=== PATIENT | female | born 1990 | race Caucasian/White ===

== ENCOUNTER 2016-11-15 08:42 | Emergency (ER) | payer MEDICAID, OTHER ==
[2016-11-15 08:53] VITALS: BP 140/83
[2016-11-15] MEDS ORDERED: Ketorolac 60 MG/2 ML SDV IM ONE (09:14)
[2016-11-15] MEDS ORDERED: Acetaminophen/oxyCODONE 325-5 MG Tab PO ONE (09:15)
[2016-11-15] MEDS ORDERED: cefTRIAXone 1 GM, Lidocaine 1% 2.1 ML IM ONE ×2 (09:15)
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
== END 2016-11-15 09:33 | disposition home or self-care (01) ==
LOC: JP.ED 08:42
DX: K04.7 Periapical abscess without sinus (principal); J45.909 Unspecified asthma, uncomplicated; F41.0 Panic disorder [episodic paroxysmal anxiety]; F17.210 Nicotine dependence, cigarettes, uncomplicated; Z98.890 Other specified postprocedural states; Z79.899 Other long term (current) drug therapy; Z88.5 Allergy status to narcotic agent
CPT/HCPCS: 96372; 99283; A9270; J0696; J1885

== ENCOUNTER 2016-12-19 20:08 | Emergency (ER) | payer MEDICAID ==
[2016-12-19 21:01] VITALS: BP 122/76
[2016-12-19] MEDS ORDERED: LORazepam 1 MG Tab PO ONE (21:39)
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
== END 2016-12-19 22:23 | disposition home or self-care (01) ==
LOC: JP.ED 20:08
DX: F41.9 Anxiety disorder, unspecified (principal); J45.909 Unspecified asthma, uncomplicated; F17.210 Nicotine dependence, cigarettes, uncomplicated; Z88.5 Allergy status to narcotic agent; Z79.899 Other long term (current) drug therapy
CPT/HCPCS: 99283; A9270

== ENCOUNTER 2017-01-03 20:25 | Emergency (ER) | payer MEDICAID ==
[2017-01-03 20:51] VITALS: BP 103/75
[2017-01-03] MEDS ORDERED: Doxycycline 100 MG Cap PO ONE (21:15)
[2017-01-03] MEDS ORDERED: Acetaminophen 325 MG Tab PO ONE (21:15)
[2017-01-03] MEDS ORDERED: Ibuprofen 600 MG Tab PO ONE (21:15)
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
== END 2017-01-03 22:07 | disposition home or self-care (01) ==
LOC: JP.ED 20:25
DX: L03.811 Cellulitis of head [any part, except face] (principal); J45.909 Unspecified asthma, uncomplicated; G43.909 Migraine, unspecified, not intractable, without status migrainosus; F17.210 Nicotine dependence, cigarettes, uncomplicated; Z88.5 Allergy status to narcotic agent
CPT/HCPCS: 80053; 85025; 86618; 86666; 86753; 99284; A9270; 36415

== ENCOUNTER 2018-12-10 12:57 | Emergency (ER) | payer MEDICAID ==
[2018-12-10 13:14] VITALS: BP 149/95; PULSE 104
[2018-12-10] MEDS ORDERED: Bupivacaine 0.5% 10 ML SDV INJECT ONE (13:34)
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
== END 2018-12-10 14:01 | disposition home or self-care (01) ==
LOC: JP.ED 12:57
DX: H60.02 Abscess of left external ear (principal); J45.909 Unspecified asthma, uncomplicated; Z88.5 Allergy status to narcotic agent; Z79.899 Other long term (current) drug therapy; Z87.891 Personal history of nicotine dependence
CPT/HCPCS: 69000; 99282; J3490; 10060

== ENCOUNTER 2019-06-27 05:41 | Inpatient (IN) | payer MEDICAID ==
[2019-06-27] MEDS ORDERED: Lactated Ringers 1,000 ML IV SCH (06:00)
[2019-06-27] MEDS ORDERED: cefOXitin 1 GM Vial ONE (06:43)
[2019-06-27] MEDS ORDERED: Oxytocin 10 Units/1 ML SDV ONE ×2 (06:43→07:09)
[2019-06-27] MEDS ORDERED: ePHEDrine 50 MG/ML SDV ONE (07:31)
[2019-06-27] MEDS ORDERED: Phenylephrine 1% 10 MG/ML SDV ONE (07:36)
[2019-06-27] MEDS ORDERED: cefOXitin 2 GM Vial ONE (07:43)
[2019-06-27] MEDS ORDERED: Lactated Ringers 1,000 ML ONE (07:44)
[2019-06-27] MEDS ORDERED: fentaNYL 100 MCG/2 ML SDV ONE (08:39)
[2019-06-27] MEDS ORDERED: fentaNYL/Normal Saline 600 MCG/30 ML PCA Vial IV PRN (09:19)
[2019-06-27] MEDS ORDERED: Naloxone 0.4 MG/ML SDV IV PRN (09:19)
[2019-06-27] MEDS ORDERED: fentaNYL 100 MCG/2 ML SDV IVPUSH ONE (09:25)
[2019-06-27] MEDS ORDERED: Ondansetron 4 MG/2 ML SDV IVPUSH PRN (09:34)
[2019-06-27] MEDS ORDERED: Albuterol 0.083% 2.5 MG/3 ML Neb Soln INH PRN (09:42)
[2019-06-27] MEDS: hydrOXYzine HCL 100 MG/2 ML SDV IM PRN (09:49)
[2019-06-27] MEDS ORDERED: fentaNYL 100 MCG/2 ML SDV IV PRN ×2 (10:02→18:00)
[2019-06-27] MEDS: Acetaminophen 325 MG Tab PO SCH ×3 (12:08→21:41)
[2019-06-27] MEDS: Dextrose 5%-Lactated Ringers 1,000 ML IV SCH ×2 (12:11→17:19)
[2019-06-27] MEDS ORDERED: SYMBICORT 160/4.5 INHALER (PTOM) INH PRN (13:24)
[2019-06-27] MEDS: Ibuprofen 600 MG Tab PO SCH ×2 (14:07→17:15)
[2019-06-27] MEDS: cefOXitin 2 GM in Sodium Chloride 0.9% 50 ML IV SCH ×2 (14:54→20:06)
[2019-06-27] MEDS ORDERED: Dextrose 5%-Lactated Ringers 1,000 ML IV SCH (18:00)
[2019-06-28] MEDS: Ibuprofen 600 MG Tab PO SCH ×4 (00:21→18:18)
[2019-06-28] MEDS: cefOXitin 2 GM in Sodium Chloride 0.9% 50 ML IV SCH ×4 (02:09→19:42)
[2019-06-28] MEDS: Acetaminophen 325 MG Tab PO SCH ×4 (04:16→21:40)
[2019-06-28] MEDS: hydrOXYzine HCL 100 MG/2 ML SDV IM PRN (04:17)
[2019-06-28] MEDS ORDERED: Lanolin 100% Cream 40 GM Tube TOP PRN (05:45)
[2019-06-28] MEDS ORDERED: Non-Formulary Medication 1 Each (Budesonide/Formoterol [Symbicort 160-4.5 Mcg] 2 PUFF) IH PRN (07:25)
[2019-06-28] MEDS: Pantoprazole 40 MG Tab.CR PO SCH (07:59)
[2019-06-28] MEDS: HYDROmorphone 2 MG Tab PO PRN ×3 (07:59→19:48)
--- NOTE | 2019-06-28 08:45 | PN ---
DATE OF SERVICE: 06/28/2019 SUBJECTIVE: Mary is postop day #1 following a repeat . She states her pain is controlled. Vital signs have been stable. Oral intake 1920, urine output 2275 via Escobar catheter. Her Escobar catheter was removed early this a.m., and she has not voided yet. REVIEW OF SYSTEMS: Remainder of review of systems negative for any pertinent positives and negatives. OBJECTIVE: GENERAL: Mary Mckeon is a pleasant 28-year-old female. VITAL SIGNS: TPR is 98, 93, 18, blood pressure 100/55. HEENT: Negative. NECK: Supple. HEART: Regular rate and rhythm. LUNGS: Clear. ABDOMEN: Dressings dry and intact. Abdominal binder is on. EXTREMITIES: Revealed trace peripheral edema. ASSESSMENT: 1. Repeat section. 2. Bilateral tubal ligation. 3. Repair of incarcerated incisional hernia for history of previous C-sections, multiparity, and incarcerated incisional hernia. 4. Date of surgery: 06/27/2019. Surgeon: Chuy Dodge MD. PLAN: 1. Saline lock IV. 2. May shower. 3. Dulcolax tablets 10 mg p.o. b.i.d. 4. Colace 100 mg p.o. b.i.d. 5. Dilaudid 2 to 4 mg every 4 hours p.r.n. pain. 6. We will evaluate p.r.n. or in a.m. Va Epps PA-C /[id number]
[2019-06-28] MEDS ORDERED: [UNRECOGNIZED DRUG - OTHER] PO SCH (09:00)
[2019-06-28] MEDS ORDERED: PRENATAL PO SCH (09:00)
[2019-06-28] MEDS ORDERED: Non-Formulary Medication 1 Each (Omeprazole Magnesium [Prilosec Otc] 20 MG) PO SCH (09:00)
[2019-06-28] MEDS ORDERED: FOLIC PO SCH (09:00)
[2019-06-28] MEDS ORDERED: IRON FUM PO SCH (09:00)
[2019-06-28] MEDS ORDERED: DHA PO SCH (09:00)
[2019-06-28] MEDS: Bisacodyl 5 MG Tab PO SCH ×3 (10:08→21:41)
[2019-06-28] MEDS: Docusate Sodium 100 MG Cap PO SCH ×3 (10:08→21:41)
[2019-06-28] MEDS: Prenatal Multivitamin with Calcium/Folic Acid/Iron Tab PO SCH (10:09)
[2019-06-29] MEDS: Ibuprofen 600 MG Tab PO SCH ×2 (01:14→06:20)
[2019-06-29] MEDS: cefOXitin 2 GM in Sodium Chloride 0.9% 50 ML IV SCH (01:15)
[2019-06-29] MEDS: Acetaminophen 325 MG Tab PO SCH ×2 (04:51→10:47)
[2019-06-29 07:47] VITALS: BP 100/62; PULSE 94
[2019-06-29] MEDS: Pantoprazole 40 MG Tab.CR PO SCH (07:48)
[2019-06-29] MEDS ORDERED: Ibuprofen 200 MG Tab, 24 Tab Bulk Bottle PO PRN (08:00)
[2019-06-29] MEDS ORDERED: Acetaminophen 325 MG Tab, 50 Tab Bulk Bottle PO PRN (08:00)
--- NOTE | 2019-06-29 09:02 | OR ---
DATE OF PROCEDURE: 06/27/2019 SURGEON: Chuy Dodge MD PREOPERATIVE DIAGNOSES: 1. Term with history of previous section. 2. Multiparity with indications for tubal ligation. POSTOPERATIVE DIAGNOSES: 1. Term with history of previous section. 2. Multiparity with indications for tubal ligation. 3. Incarcerated incisional hernia. OPERATIVE PROCEDURES: 1. Repeat section (20456). 2. Bilateral tubal ligation (65712). 3. Repair of incarcerated incisional hernia (26217). ANESTHESIA: Spinal. JUNIOR ACCOUNT EXECUTIVE: Naomi Marcelino CNM INDICATION FOR PROCEDURE: This is a 28-year-old female presenting for a scheduled repeat section. She also meets criteria for a tubal sterilization, which was approved by the ethics committee. Potential risks of the procedure including bleeding, infection, injury to mother or baby, possibility of the tubal ligation failing, and the fact that a tubal reversal is often not successful, were all gone over with the patient, and she wishes to proceed. DETAILS OF PROCEDURE: The patient was taken to the operating room and placed in a supine position with a roll underneath the right hip after spinal anesthetic had been induced. A Escobar catheter was inserted, and the abdomen was prepped and draped. Previous transverse Pfannenstiel incision was then reused, carried down through the skin and subcutaneous tissue, and through the anterior rectus sheath. Subrectus sheath flaps were then raised superiorly and inferiorly. The patient was noted to have an incarcerated hernia coming up through the leaves of the rectus muscle. This contained some incarcerated omentum within it. This was dissected free and reduced. At that point, the rectus muscles were in the midline. The peritoneal reflection of bladder on the uterus was then divided and reflected downward. A transverse uterine incision was made, and a viable female was delivered through a vertex presentation. Cord was clamped and cut, and routine care was given off the field. The patient was given IV and intrauterine oxytocin and IV cefoxitin. Good uterine contraction was noted. The placenta was delivered without difficulty. The uterus was then closed with 2 layers of 2-0 Vicryl stitch, which was also used to repair the peritoneal reflection of the bladder onto the uterus. At this point, bilateral tubal ligation was accomplished. Roughly 1 cm section of the proximal uterine tube was excised and the remaining ends cauterized and then suture-ligated with 3-0 Prolene stitch. At this point, no further problems were noted. The pericardial cavity was replaced. The uterus was placed back into the peritoneal cavity. The midline musculature was then approximated with #2 Vicryl stitch, this included repair of the area of herniation. The muscle somewhat to the left of that was also split, and this was likewise repaired. Over this then, the rectus sheath was closed with a #2 Vicryl stitch, subcutaneous tissue with 3-0 Vicryl stitch, and the skin with 4-0 Vicryl subcuticular stitch. Dressing was applied. The patient was taken to the recovery room in satisfactory condition. There were no evident complications. Chuy Dodge MD /[id number]
[2019-06-29] MEDS: Docusate Sodium 100 MG Cap PO SCH (10:46)
[2019-06-29] MEDS: Bisacodyl 5 MG Tab PO SCH (10:47)
[2019-06-29] MEDS: Prenatal Multivitamin with Calcium/Folic Acid/Iron Tab PO SCH (10:47)
--- NOTE | 2019-06-29 11:05 | DISCH ---
ADMISSION DIAGNOSES: 1. Term , multiparity, with prior . 2. Desire for permanent sterilization. DISCHARGE DIAGNOSES: 1. Repeat . 2. Bilateral tubal ligation. 3. Repair of incarcerated incisional hernia. POSTOPERATIVE DIAGNOSES: 1. History of previous , multiparity. 2. Incarcerated incisional hernia. Date of surgery: 06/27/2019. Surgeon: Chuy Dodge MD. HISTORY: Mary Mckeon is a 28-year-old female who presented to the hospital for a repeat C- section. After preoperative evaluation and discussion of possible risks and possible complications, she wished to proceed with surgical procedure. HOSPITAL COURSE: Mary had her section on 06/27/2019. She had no complications. Delivery of a viable female. On postoperative day #1, her IV was saline locked. She was able to take a shower. Started on bowel stimulation and oral pain medication. On postoperative day #2, she was ready to be discharged to home. Vital signs were stable. Activity was good. Pain was controlled. Oral intake was adequate. PHYSICAL EXAMINATION: GENERAL: Mary Mckeon is a pleasant 28-year-old female. VITAL SIGNS: Height is 5 feet 1 inch, weight is 204 pounds. TPR 97, 94, 18, blood pressure 100/62. HEENT: Negative. NECK: Supple. HEART: Regular rate and rhythm. LUNGS: Clear. ABDOMEN: Abdominal binder is on. incision looks good. Healing well. No rash. EXTREMITIES: Without peripheral edema. DISPOSITION: Discharged to home. CONDITION: Stable and improving. FOLLOWUP: Appointment with Va Epps PA-C at [facility] on 07/06/2019 at 9 a.m. Follow up with Naomi Marcelino CNP, appointment will be made. HOME MEDICATIONS: 1. Dilaudid 2 mg every 6 hours #28 p.r.n. pain. 2. Tylenol bottle, sent home with the patient 650 mg every 4 hours p.r.n. pain. 3. Colace 100 mg b.i.d. #60 to pharmacy with 1 refill. 4. Motrin bottle 600 mg every 6 hours p.r.n. pain. Send the bottle home with the patient. 5. Lanolin topical use as directed 40 g tube, to be sent home with the patient. 6. She is to resume her vitamins 1 daily, omeprazole 20 mg oral daily. DIET: Regular diet as tolerated. Drink 8 to 10 glasses of water a day. ACTIVITY: No lifting greater than 10 pounds for 6 weeks, but may lift baby and car seat. Walk at least 6 times daily in your home. Driving: Do not drive for 1 week and while on Dilaudid pain medication. Shower/bathing, may shower. No tub bathing or swimming for 8 weeks. Wound incision care, keep site clean and dry. Wear abdominal binder for 6 weeks or as tolerated. SPECIAL INSTRUCTIONS: Use incentive spirometer 10 times every hour while awake.
== END 2019-06-29 11:00 | disposition home or self-care (01) | DRG 784 ==
LOC: JP.SDS 05:41 → JP.SDSSCHI 05:41 → EDSTATUS 07:15 → JP.MS 07:53
PROVIDERS: ADMIT Surgery; ATTEND Advanced Practice Midwife
PROC: 10D00Z1 Extraction of Products of Conception, Low, Open Approach (ICD-10-PCS; principal; 2019-06-27)
PROC: 0UB70ZZ Excision of Bilateral Fallopian Tubes, Open Approach (ICD-10-PCS; 2019-06-27)
PROC: 0WQF0ZZ Repair Abdominal Wall, Open Approach (ICD-10-PCS; 2019-06-27)
DX: O34.211 Maternal care for low transverse scar from previous cesarean delivery (principal); K43.0 Incisional hernia with obstruction, without gangrene; O99.62 Diseases of the digestive system complicating childbirth; Z37.0 Single live birth; Z3A.38 38 weeks gestation of pregnancy
CPT/HCPCS: 36415; 59409; 80048; 80305-QW; 85025; 85027; 86850; 86900; 86901; 88302; 88307; 94762; A9270-GY; J0694; J2370; J2590; J3010; J3410; J7050; J7120; J7121

== ENCOUNTER 2019-07-01 06:51 | Emergency (ER) | payer MEDICAID ==
[2019-07-01 07:18] VITALS: BP 125/77; PULSE 92
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
[2019-07-01] MEDS ORDERED: Furosemide 40 MG/4 ML VIAL IM ONE (08:10)
== END 2019-07-01 08:50 | disposition home or self-care (01) ==
LOC: JP.ED 06:51
DX: O90.89 Other complications of the puerperium, not elsewhere classified (principal); E87.70 Fluid overload, unspecified; E66.9 Obesity, unspecified; J45.909 Unspecified asthma, uncomplicated; Z88.5 Allergy status to narcotic agent; Z79.899 Other long term (current) drug therapy
CPT/HCPCS: 36415; 80053; 85025; 96372; 99283; J1940

== ENCOUNTER 2022-08-23 10:33 | Emergency (ER) | payer SELFPAY ==
[2022-08-23] MEDS ORDERED: Ondansetron 4 MG Tab.DIS ONE (10:39)
[2022-08-23] MEDS ORDERED: Ondansetron 4 MG Tab.DIS PO ONE (10:44)
[2022-08-23] MEDS ORDERED: Buprenorphine/Naloxone 2-0.5 MG Tab.SL SL ONE ×2 (10:45→11:45)
[2022-08-23] MEDS ORDERED: Sodium Chloride 0.9% 10 ML Syringe FLUSH PRN (11:04)
[2022-08-23] MEDS ORDERED: Prochlorperazine 10 MG/2 ML SDV IVPUSH ONE (11:04)
[2022-08-23 12:59] VITALS: BP 117/71; PULSE 72
== END 2022-08-23 14:02 | disposition home or self-care (01) ==
LOC: JP.ED 10:33
DX: F11.21 Opioid dependence, in remission (principal); E66.9 Obesity, unspecified; Z68.31 Body mass index [BMI] 31.0-31.9, adult; Z88.5 Allergy status to narcotic agent; Z79.899 Other long term (current) drug therapy
CPT/HCPCS: 96374; 99284; A9270; J0780; J3490; Q0162

== ENCOUNTER 2024-05-23 16:59 | Emergency (ER) | payer MEDICAID ==
[2024-05-23 17:24] VITALS: BP 117/67; PULSE 73
== END 2024-05-23 20:42 | disposition home or self-care (01) ==
LOC: JP.ED 16:59
DX: S06.0X0A Concussion without loss of consciousness, initial encounter (principal); J45.909 Unspecified asthma, uncomplicated; Z88.5 Allergy status to narcotic agent; Z79.899 Other long term (current) drug therapy; W01.198A Fall on same level from slipping, tripping and stumbling with subsequent striking against other object, initial encounter
CPT/HCPCS: 70450; 99283